=== PATIENT | male | born 1975 | race Caucasian/White ===

== ENCOUNTER 2017-02-03 19:45 | Emergency (ER) | payer BC ==
--- NOTE | 2017-02-03 20:52 | PDOC ---
Foot / Ankle Injury - General Chief Complaint: Lower Extremity Problem/Injury Stated Complaint: LEFT ANKLE INJURY Date Seen by Provider: 02/03/17 Time Seen by Provider: 19:50 Source: POSITIVE: Patient Exam Limitations: POSITIVE: No limitations Nurse's Notes Reviewed & Considered: Yes - History of Present Illness Initial Comments: The patient is a 41 year old male. He states that approximately one hour [employer] he stepped down off a step and forced his left foot into inversion. He did not fall. He complains of pain over the lateral aspect of the left ankle since. He states he has a great deal of pain with weightbearing. He denies any other injuries. Have you received a tetanus shot in the past 10 years?: No Location: Left Ankle Timing: REPORTS: Abrupt Duration: 1 hour Severity: Moderate Quality: REPORTS: "Pain" Context: REPORTS: Twist Modifying Factors: REPORTS: Movement, Other (exacerbated by weight bearing) Associated Symptoms: DENIES: Tingling Distally, Numbness Distally, Swelling, Snapping Sensation, Popping Sensation, Other Any Prior Injuries Related to Current Complaint?: No - Patient Allergies Allergies/Adverse Reactions: Allergies Allergy/AdvReac Type Severity Reaction Status Date / Time No Known Allergies Allergy Unverified 08/10/15 08:46 - Patient Home Medications Home Medications: Home Medications Amoxicillin Trihydrate [Amoxicillin] 875 mg PO BID #20 cap 08/10/15 Past Medical History - heen HEENT History: Denies History Cardiovascular History: Denies History Respiratory History: Denies History Gastrointestinal History: Denies History Genitourinary History: Denies History Endocrine History: Denies History Musculoskeletal History: Denies History Neurological History: Denies History Blood Disorders: Denies History Psychiatric History: Denies History Male Reproductive History: Denies History Cancer History: Denies History In Past Year Been Physically Harmed or Verbally Threatened: No History of MDRO: No Tobacco Use: Former Smoker Alcohol Use: None Substance Use Type: None Previous Surgical History: No Significant Family History: No pertinent family hx Past Medical History Reviewed: Reviewed - No Changes ROS - Limitations ROS Limitations: No Limitations Constitution: REPORTS: Denies Symptoms Cardiovascular: REPORTS: Denies Cardiac Symptoms Respiratory: REPORTS: Denies Resp Symptoms Neurological: REPORTS: Denies Neuro Symptoms Gastrointestinal: REPORTS: Denies GI Symptoms Endocrine: REPORTS: Denies Symptoms Musculoskeletal: REPORTS: Joint Pain (Left ankle, lateral aspect) Genitourinary: REPORTS: Denies Symptoms Eyes: REPORTS: Denies Symptoms ENT: REPORTS: Denies Symptoms Skin: REPORTS: Denies Skin Symptoms Lympathic: REPORTS: Denies Lympathic Symptoms Immunologic: POSITIVE: Denies Symptoms Psychiatric: POSITIVE: Denies Psych Symptoms Foot / Ankle Exam - General Appearance General Appearance: POSITIVE: Alert, Cooperative, No Acute Distress. NEGATIVE: No Evidence of Trauma - Extremities Foot: POSITIVE: Normal Inspection, Non-Tender Ankle: POSITIVE: Normal ROM, Stable, Soft-Tissue Tenderness, Bony Tenderness, Swelling (laterally), See Diagram. NEGATIVE: Ecchymosis, Limited ROM, Deformity , Ligamentous Instability Gait: POSITIVE: Antalgic Gait Neuro: POSITIVE: Sensation Normal, Motor Normal Vascular: POSITIVE: No Vascular Compromise, Full Pulses, Equal Pulses Tendons: POSITIVE: Tendon Function Normal Skin: POSITIVE: Warm, Dry - Neck / Back Neck / Back: Normal Inspection - Respiratory / CVS Respiratory / CVS: POSITIVE: Chest Non-Tender, No Respiratory Distress, Heart Sounds Normal, Regular Rate/Rhythm, Breath Sounds Normal Peripheral Pulses: Radial (R): 2+, Radial (L): 2+, Dorsalis-pedis (R): 2+, Dorsalis-pedis (L): 2+ Images - Lower Extremities Lower Extremities: 1 - Pain on palpation was some swelling. Procedures - Splinting Time Splint Applied: 20:35 Location: Cam Walker left leg Pre-Proc Neuro Vasc Exam: Normal Splint Type: CAM Walker, Crutches Splint Form: Short Extremity Applied By:: Nurse Post-Proc Neuro Vasc Exam: Normal Foot / Ankle Progress - Results Reviewed by me Pain Medication Addressed: POSITIVE: Yes (recommended Advil or Tylenol) School/Work Release Addressed: POSITIVE: Yes (no weight bearing for 3 days) Xrays/CTs/US Reviewed by me: Yes Discussed with Radiologist: No Radiology Results: POSITIVE: Left, Ankle, No Fracture, Normal Alignment Radiology Findings: X-ray left ankle shows no fractures or dislocations - Patient's Progress Re-Examine Time:: 20:40 Re-Examine Comment: Ankle immobilized Cam Walker and patient given instructions. Patient experienced relief of discomfort with Cam Walker. Status: POSITIVE: Improved, Re-Examined - Consult Counseled: POSITIVE: Patient, RE: Radiology Results, RE: DX, RE: Need for F/U Patient Care Time - Estimated PCT Patient Care Time (In Minutes): 30 Vital Signs - Recent Vital Signs Vital Signs: Vital Signs (Last 8 hours) Temp Pulse Resp BP Pulse Ox 02/03/17 19:51 98.6 F 67 18 136/88 94 - VS Reviewed Vital Signs Reviewed: Yes Discharge Clinical Impression: Sprain of ankle Discharge Disposition: Discharged to Home Condition: Good Patient Instructions Given at Discharge: Ankle Sprain (ED) Additional Instructions: Cam Walker and use crutches and bear no weight on your left ankle for 3 or 4 days. Then try bearing some weight while wearing your Cam Walker. Cam Walker for 7-10 days. Elevate leg. Cool compresses. Advil or Tylenol for pain. Return here anytime if condition worsens. Follow-up with your primary care provider. Follow Up With: NONE,NONE [Primary Care Provider] - (Instructions as above. Follow-up with primary care provider. Return here anytime if condition worsens. Follow-up in orthopedics if not able to bear weight comfortably in 10 days.)
[2017-02-03 21:22] VITALS: RESP 18; TEMP 98.6
--- NOTE | 2017-02-04 09:35 | DI ---
XR ANKLE COMPLETE MIN 3VW,02/03/2017 8:00 PM: Clinical History: Left ankle injury. Previous Exam: None at this facility. Findings: 3 views of the left ankle are obtained, and demonstrate some mild soft tissue swelling over lateral m alleolus. Alignment is anatomic and no fractures are seen. The talar dome is grossly normal. Impression: No fracture.
== END 2017-02-03 21:00 | disposition home or self-care (01) ==
LOC: ER 19:45
DX: S93.402A Sprain of unspecified ligament of left ankle, initial encounter (principal); X50.1XXA Overexertion from prolonged static or awkward postures, initial encounter
CPT/HCPCS: 73610; 99282; 99283